=== PATIENT | female | born 1940 | race Caucasian/White ===

== ENCOUNTER 2016-08-28 09:16 | Inpatient (IN) | payer MEDICARE ==
[~2016-08-28] VITALS: Ht 162.6 cm; Wt 68.0 kg
[~2016-08-28 09:16] MED LIST: APIX5TAB PO; ASPI-973 PO; ATOR20TA65 PO; BIFI4CAP PO; CALC-78 PO; DILT120C83 PO; ESCI5TAB10 PO; FUR20 PO; LACT1CAP65 PO; LOSA100T29 PO; LUTE1CAP PO; METO25TA99 PO; MULT-1018 PO; RANI150T11 PO; UBID100C25 PO
--- NOTE | 2016-08-28 10:15 | NUR ---
MOc Admit Patient is a direct admit from home accompanied by her , ambulatory, A/O x3. PCP visit yesterday and was advised to seek admission today. Patient oriented to room and unit, will continue to monitor.
[2016-08-28] MEDS ORDERED: ATOR20TA PO (11:58)
[2016-08-28] MEDS ORDERED: ESCI5TAB PO (12:08)
[2016-08-28] MEDS ORDERED: AMLO5TAB2 PO (12:08)
[2016-08-28] MEDS ORDERED: METO-272 PO (12:08)
[2016-08-28] MEDS ORDERED: DABI150C PO (12:08)
[2016-08-28] MEDS ORDERED: ZYL100 PO (12:08)
[2016-08-28 13:15] VITALS: BP 143/74; PULSE 56; RESP 16; O2SAT 96
[2016-08-28] MEDS ORDERED: 0.9% Sodium Chloride 500 ML IV STA (15:50)
[2016-08-28] MEDS ORDERED: Ondansetron 2 mg/mL 2 mL Inj IVPUSH PRN (15:50)
[2016-08-28] MEDS ORDERED: Alum-Mag Hydrox-Simeth 30 mL Suspension PO PRN (15:50)
[2016-08-28] MEDS ORDERED: Polyethylene Glycol (PEG) 17 Gm Powder PO PRN (15:50)
--- NOTE | 2016-08-28 16:46 | HP ---
[address] [address] HISTORY AND PHYSICAL PATIENT: NELIA DOBBS : 1940 MR#: [id number] ADMIT: 08/28/2016 JOB ID: [id number] PRIMARY CARE PROVIDER: Dr. Lopez Bone, [facility], Jeb Liu. The patient is admitted from the ED, inpatient status, [place] [facility]. CHIEF COMPLAINT: Abdominal pain. HISTORY OF PRESENT ILLNESS: This is a very pleasant 75-year-old female with three episodes of acute abdominal pain. Yesterday she woke up in the morning, had a cup of coffee and shortly thereafter developed pretty intense mid epigastric abdominal pain, nausea and vomiting. This lasted for several hours. She touched base with her physician who did lab work which showed an elevated lipase reported today and also an ultrasound reported today that showed gall stones. No pericystic fluid. Negative Jordan sign. Non dilated ducts and questionable acute cholecystitis. About 3:30 the pain resolved. The patient had two raspberries later in the evening. Again had about another 15 minutes of pain, but since then the pain is pretty much gone at this time. However, she is not eating anything. The patient had two other episodes, one last Friday and one about two weeks prior, very similar to the above but it was not as severe and only lasted about half an hour. She has not had this before and does not know she has gallstones. She has never had pancreatitis. She drinks no alcohol. There has been no diarrhea, no cough, productive sputum, chest pain, headaches. COMPLETE REVIEW OF SYSTEMS: Obtained, all pertinent positives as in HPI above, the rest of review of systems are negative. PAST MEDICAL HISTORY: 1. Paroxysmal atrial fibrillation. 2. Hypertension. 3. Hyperlipidemia. 4. Mild coronary artery disease. 5. Insomnia. 6. Chronic diastolic heart failure. 7. Chronic kidney disease stage 3. 8. Diverticulosis. 9. Gout. MEDICINES: 1. Pradaxa 150 b.i.d. 2. Amlodipine 5 b.i.d. 3. Lipitor 20 daily. 4. Losartan 200 daily. 5. Metoprolol 50 b.i.d., succinate. 6. Aspirin 81 daily. 7. Lasix 20 daily. 8. Escitalopram 2.5 daily. 9. Lexapro 2.5 daily. 10. Calcium. 11. Allopurinol 100 daily. ALLERGIES: CODEINE causes nausea. No other allergies. SOCIAL HISTORY: The patient lives with her . She has never smoked and she consumes no alcohol. FAMILY HISTORY: Mother had significant coronary artery disease as well as her sister. PHYSICAL EXAMINATION: No fever, heart rate 56, respiratory rate 16, blood pressure 143/74, O2 sats 96% on room air. The patient is alert, not in acute distress. is present. Skin is warm and dry. Eyes: PERRLA. EOMs intact. Mouth shows adequate hydration. No lesions. Cardiac is regular. No murmur. Lungs clear to auscultation. Abdomen has a little bit of epigastric to right upper quadrant discomfort to deep palpation. Mild. The rest of her abdominal examination is benign, soft, nonacute. Extremities showed no significant edema. Cranial nerves 2-12 are intact. No gross motor or sensory defects noted. ANALYSIS AND PLAN: 1. Acute pancreatitis present on admission, active. Our triage physician told me that the patient's lipase was over 3000. She has obvious gallstones without dilated ducts. At this time we are going to put her on limited intake with some clear liquids only. We are going to give her 500 cc NS bolus and then maintain an IV at 150 cc an hour for good hydration. I have set patient up for a MRCP. Will repeat lab today and get followup lab in the morning. Will provide a little bit of Dilaudid for pain if she needs it. 2. Coronary artery disease. Her coronary artery disease mild, present on admission, stable. Will get a baseline EKG. Will continue with patient's aspirin, metoprolol and amlodipine but we will be holding her ARB, Lipitor and Lasix for now. 3. Paroxysmal atrial fibrillation present on admission, stable. Will monitor the patient on telemetry. We are going to hold patient's Pradaxa at this point in time as the patient could deteriorate and require some sort of surgical intervention. Will place her on subcutaneous heparin prophylactically for DVT. Will restart her Pradaxa as soon as possible. Will be continued with her metoprolol. 4. Depression. Present on admission, stable. Will continue with patient's Lexapro and escitalopram. 5. Gout. Present on admission, stable. Will continue with patient's allopurinol 100 mg daily. CODE STATUS: FULL CODE. The patient is admitted under inpatient status with expected length of stay greater than two mid nights due to severity of presenting symptoms, risk of adverse events and complexity of treatment plan.
--- NOTE | 2016-08-28 16:50 | DRSVH ---
PROCEDURE: MR ABDOMEN MRCP INDICATIONS: Gallstones and pancreatitis, abdominal pain TECHNIQUE: Coronal HASTE through the abdomen, axial 2-D FLASH in- and [id number], and breath-hold T2 FSE with fat saturation through the biliary system and pancreas. Oblique coronal and axial thin-slice HASTE, radial thick-slab HASTE centered on the extrahepatic bile ducts. Intravenous secretin: Not requested. COMPARISON: [facility], US, US ABDOMEN, 08/27/2016, 17:10. FINDINGS: Image quality: Limited by patient motion artifact. Pancreas and biliary system: Intra- and extra-hepatic biliary ducts are non dilated. Pancreas is no rmal in morphology, without adjacent soft tissue edema. Pancreatic duct is normal in caliber, withou t developmental anomalies. Multiple gallstones noted in the dependent portion of the gallbladder nec k. Filling defect is noted in the distal common bile duct near the level of the ampulla suspicious fo r choledocholithiasis. Gallbladder wall is thickened and there is pericholecystic fluid. Other solid organs: Liver and spleen are normal in size. No adrenal nodules. Both kidneys are norm al in size, without hydronephrosis. Nodes and vessels: No retroperitoneal or mesenteric adenopathy by size criteria. Aorta and inferior vena cava are normal in size. Bowel and peritoneum: Unenhanced bowel loops are normal in caliber. No free fluid. Lung bases: No basal pleural effusions. Heart size is normal. Bones and soft tissues: No ventral hernias. Bone marrow is of normal overall signal. IMPRESSION: 1. Cholelithiasis with gallbladder wall thickening and a small amount of pericholecystic fluid concer yash for acute cholecystitis. 2. Small filling defect in the distal common bile duct near the ampulla suspicious for choledocholith iasis. 3. Image quality limited by motion artifact. Dictated by: Xiomara Raymond MD, PhD on 08/28/2016 at 16:44 Approved by: Xiomara Raymond MD, PhD on 08/28/2016 at 16:49
[2016-08-28 17:03] LABS: APPEARANCE,URINE CLEAR (CLEAR,HAZY); COLOR,URINE YELLOW (YELLOW); OCCULT BLOOD,URINE NEGATIVE (NEGATIVE); UROBILINOGEN,URINE NORMAL (NORMAL)
[2016-08-28 17:29] LABS: BASOPHILS % (AUTO) 0.3 % (0-3); EOSINOPHILS % (AUTO) 3.7 % (0-5); MONOCYTES % (AUTO) 11.5 % (4-12); Mean Corpuscular Hemoglobin 33.2 pg (27.0-35.0); NEUTROPHILS % (AUTO) 64.7 % (40-74); Platelet Count 192 bil/L (150-400)
[2016-08-28 18:05] VITALS: BP 149/66; PULSE 60; O2SAT 97
[2016-08-28] MEDS: 0.9% Sodium Chloride 1,000 ML IV SCH (18:09)
[2016-08-28] MEDS: Heparin 5,000 Unit/mL Inj SUBQ SCH (18:09)
[2016-08-28 18:10] VITALS: PULSE 58
--- NOTE | 2016-08-28 19:27 | NUR ---
INSOMNIA At shift change, pt reported having insomnia when she's in the hospital. Pt said she normally takes zolpidem at home PRN and melatonin every night for a year, but that melatonin has not been working for her. Paged Dr. Robles "Pt requesting ambien, says she normally takes at home. Also reports melatonin, but does not work for her." Awaiting reply. Addendum: 08/28/16 at 1939 by DENZEL COLLADO RN Ambien ordered for tonight. Melatonin and ambien added to medication reconciliation. Discussed with pt needed to speak with day hospitalist about adding these medications.
[2016-08-28] MEDS ORDERED: ZOLP5TAB6 PO (19:37)
[2016-08-28] MEDS ORDERED: MELA1TAB10 PO (19:38)
[2016-08-28] MEDS: MeTOProlol XL 50 mg ER24 Tablet PO SCH (19:52)
[2016-08-28 19:54] VITALS: BP 146/63; PULSE 58; RESP 17; O2SAT 95
[2016-08-29] VITALS (16 sets, daily range): BP systolic 113–166; BP diastolic 49–88; PULSE 55–80; RESP 15–22; O2SAT 93–100
[2016-08-29] MEDS: Heparin 5,000 Unit/mL Inj SUBQ SCH (00:51)
[2016-08-29] MEDS: 0.9% Sodium Chloride 1,000 ML IV SCH ×2 (00:51→11:37)
[2016-08-29 06:45] LABS: BASOPHILS % (AUTO) 0.4 % (0-3); EOSINOPHILS % (AUTO) 3.1 % (0-5); Mean Corpuscular Hemoglobin 33.7 pg (27.0-35.0); Mean Corpuscular Volume 99.2 fL (81-100); NEUTROPHILS % (AUTO) 69.9 % (40-74); Platelet Count 180 bil/L (150-400)
--- NOTE | 2016-08-29 07:48 | PCM.PNMED ---
Subjective Date of Service Aug 29, 2016 Subjective Resting comfortable in bed. Only on clears, no further nausea. No fever. Exam Vital Signs Vital Sign - Last Date Time Temp Pulse Resp B/P Pulse Ox O2 Delivery O2 Flow Rate FiO2 08/29/16 07:28 37.0 62 16 152/70 94 Room Air Intake and Output 08/28/16 08/28/16 08/29/16 Cumulative From/Thru 15:00 23:00 07:00 08/28/16 12:31 - 08/29/16 06:15 Intake Total 1400 ml 1488 ml 2888 ml Output Total 500 ml 1850 ml 2350 ml Balance 900 ml -362 ml 538 ml Intake Oral 900 ml 240 ml 1140 ml IV Total 500 ml 1248 ml 1748 ml Output Urine Total 500 ml 1850 ml 2350 ml Exam Skin warm and dry CV; regular with out murmur Resp; Clear to auscultation GI, soft non acute, minimal tenderness Neuro; intact, no focal deficits HENT, adequate hydration, no active lesions Lab and Diagnostics Result Diagram: 08/29/1660408/29/16 06 Assessment & Plan 1. Acute pancreatitis present on admission, improving -Lipase >3,000 out patient, now 100 -secondary to gall stones -hydration and pain management -Dilaudid IV prn sig pain 2. Gallstones, poa, active and symptomatic -see ultrasound and MRCP -discussed with Dr Rodriguez, he will see patient and consider cholecystectomy -make patient NPO 2. Coronary artery disease, poa, stable -mild disease -Will get a baseline EKG. -Will continue with patient's aspirin, metoprolol and amlodipine but we will be holding her ARB, Lipitor and Lasix for now. 3. Paroxysmal atrial fibrillation present on admission, stable. -Will monitor the patient on telemetry. -We are going to hold patient's Pradaxa at this point in time -Will be continued with her metoprolol. 4. Depression. Present on admission, stable. -continue with patient's Lexapro and escitalopram. 5. Gout. Present on admission, stable. -Will continue with patient's allopurinol 100 mg daily. Cori Thomas MD Aug 29, 2016 07:48
[2016-08-29] MEDS ORDERED: Cefotetan Inj 2,000 MG in IV Premix 1 EACH IV ONE (08:15)
[2016-08-29] MEDS: MeTOProlol XL 50 mg ER24 Tablet PO SCH ×2 (08:19→20:18)
[2016-08-29] MEDS ORDERED: ESCITALOPRAM OXALATE 2.5 MG PO SCH (08:30)
[2016-08-29] MEDS ORDERED: Ondansetron 2 mg/mL 2 mL Inj ONE (10:14)
[2016-08-29] MEDS ORDERED: Rocuronium 10 mg/mL 5 mL Inj ONE (10:14)
[2016-08-29] MEDS ORDERED: Dexamethasone 4 mg/mL Inj ONE (10:14)
[2016-08-29] MEDS ORDERED: Propofol 10,000 mCg/mL 20 mL Inj ONE (10:14)
[2016-08-29] MEDS ORDERED: fentaNYL-PF 50 mCg/mL 2 mL Inj ONE (10:14)
[2016-08-29] MEDS ORDERED: Ketamine 10 mg/mL 20 mL Inj ONE (10:14)
--- NOTE | 2016-08-29 11:51 | NUR ---
Social Work: Initial Assessment D: EMR reviewed. Pt is a 75 y/o female admitted on 08/28/16 for pancreatitis per H&P. SANYA met with pt and spouse at bedside to conduct initial assessment. Pt was alert and oriented x3. SW explained role and wrote phone number on white board in room. SW confirmed pt has completed DPOA/advanced directive ppw and encourage pt to bring a copy to the hospital. Pt's DPOA/primary contact is her spouse, Timothy Carlisle ([phone]), and can be contacted for discharge planning. Pt's insurance is [employer] and PCP is Lopez Bone MD. Pt has no SNF or HH hx. Pt does not have LTC insurance or VA benefits. Pt does not own or use any DME. Pt is independent with ADLs. Pt drives. Pt is independent at baseline. Pt lives in a multi-story home (0 steps to enter, 13 steps to the second level) with her spouse in [place]. Pt's spouse confirmed he will provide pt transport home via POV when pt is medically stable. SW does not anticipate any discharge needs at this time but will continue to follow if needs arise. A: Pt who is independent at baseline P: Pt's spouse confirmed he will provide pt transport home via POV when pt is medically stable. SANYA does not anticipate any discharge needs at this time but will continue to follow if needs arise. [facility] Addendum: 08/29/16 at 1156 by HAFSA STANTON SS Amended: Links added.
--- NOTE | 2016-08-29 13:02 | NUR ---
TO OR IV saline locked. Consent form has been signed. Report given to SISSY Martinez. Transported to the OR via a gurney. is aware.
--- NOTE | 2016-08-29 13:10 | PCM.HPANE ---
Patient Data Surgeon Admitting Provider:Nikolay Chacon MD Attending Provider:Nikolay Chacon MD Primary Care Physician:Lopez Bone MD Other Provider: Reason for Visit Pancreatitis Ht/WT & BMI Height (Feet): 5 Height (Inches): 4.00 Weight (Kilograms): 68.000 Body Mass Index 25.63 Allergies Coded Allergies: codeine (Verified Adverse Reaction, Intermediate, Nausea, 08/28/16) Uncoded Allergies: UNKNOWN ANTIBIOTIC (Allergy, Unknown, 10/17/15) severe colitis Past Anesthesia History Anesthesia History: Denies:: Abnormal Airway, Anesthesia Reactions, Difficult Intubation, Fam Anesthesia Reaction, Fam Malignant Hypertherm, Malignant Hyperthermia Diabetes History Hx Diabetes?: No MRSA MRSA: No Medications Blood Thinner: Aspirin Hypertension Medication: Yes Home Meds Incl Beta Chris: Yes Date Beta Chris Taken: Aug 29, 2016 Reported Medications Melatonin (Melatonin 1 mg Tablet)1 Each Tablet1 Mg PO HS PRN For Insomnia #0.5 TABLET Ref 0 08/28/16 Zolpidem 5 Mg Tablet5 Mg PO HS PRN For Insomnia Ref 0 08/28/16 Escitalopram Oxalate (Lexapro)5 Mg Tablet2.5 Mg PO DAILY 30 Days Ref 0 08/28/16 Amlodipine 5 Mg Tablet5 Mg PO BID Ref 0 08/28/16 Metoprolol Succinate ER 50 Mg Tab.er.24h50 Mg PO BID Ref 0 08/28/16 Dabigatran Etexilate Mesylate (Pradaxa)150 Mg Mewuvsw963 Mg PO BID 30 Days 08/28/16 Allopurinol 100 Mg Azvecu402 Mg PO DAILY Ref 0 08/28/16 Atorvastatin (Lipitor)20 Mg Vfuhvo40 Mg PO DAILY Ref 0 08/28/16 Multivitamin (Multi Vitamin Daily)1 Each Tablet1 Tab PO DAILY 02/20/16 Ubidecarenone (Co Q-10)100 Mg Dubcqba304 Mg PO DAILY 02/20/16 Lutein Extract/Zeaxanthin Ext (Lutein 15 mg Softgel)1 Each Capsule1 Capsule PO DAILY 02/20/16 Escitalopram Oxalate 5 Mg Tablet2.5 Mg PO MORNING 02/20/16 Furosemide 20 Mg Tab20 Mg PO Q3Day 11/04/15 Lactobacillus Acidophilus (Probiotic)1 Each Capsule1 Each PO Q3days 10/17/15 Calcium Carbonate/Vitamin D3 (Calcium 500 + Vit D Caplet)1 Each Tablet1 Tab PO evening 10/17/15 Losartan Potassium 100 Mg Iymjsu430 Mg PO DAILY 07/21/15 Aspirin 81 Mg Olwpjh25 Mg PO Evening 07/21/15 Discontinued Reported Medications Ranitidine (Zantac)150 Mg Aopdbu054 Mg PO DAILY PRN Heartburn 02/20/16 Bifidobacterium Infantis (Align)4 Mg Capsule4 Mg PO DAILY 02/20/16 Discontinued Scripts Apixaban (Eliquis)5 Mg Tablet5 Mg PO BID #60 TABLET Ref 0 Prov:Luc Clayton MD 02/20/16 Metoprolol Succinate ER 25 Mg Tab.er.24h25 Mg PO BID #60 TABLET Prov:Luc Clayton MD 02/20/16 Diltiazem ER (Cardizem CD)120 Mg Cap.er.54j755 Mg PO DAILY #30 TABLET Prov:Luc Clayton MD 02/20/16 Atorvastatin Calcium 20 Mg Xwvxvr30 Mg PO HS #30 TABLET Prov:Dimitri Calix MD 10/20/15 History History of ENT Problems?: Yes HEENT History: Positive for:: Cataracts (surgery 2-3yrs ago) Sinus Problem (Seasonal Allergies) Denies:: Abnormal Airway Difficult Intubation Dysphagia Glaucoma Hearing Problem Denture Type: None Full- Upper Full- Lower Teeth Condition: No Teeth Hx of Heart Problems?: Yes Cardiovascular History: Positive for:: Congestive Heart Failure (Possible, linseed oil press tender questions diagnosis) Edema (Ankles) Hypertension Irregular Heartbeat (AFIB) Denies:: AICD Atrial Fibrillation Cardiac Surgery Chest Pain Heart Murmur Pacemaker Thrombophlebitis Valvular Heart Disease Hx of Respiratory Problem?: No Respiratory History: Positive for:: Pneumonia (30yrs ago) Denies:: Asthma COPD Chest Surgery Cough Dyspnea Emphysema Hemoptysis Tuberculosis Hx Neurologic Problems?: No Neurological History: Denies:: Alzheimer's Disease CVA Dementia Dizziness Headaches Parkinson's Disease Seizures Hx of GI Problems?: Yes Hx of Problems?: No Genitourinary History: Denies:: HX of Hemodialysis Kidney Stones Urinary Tract Infection HX of Peritoneal Dialysis: No Female Hx: Denies:: Currently Endometriosis Pelvic Inflammatory Problems with Breasts? Hx Musculoskeletal Problems?: Yes Musculoskeletal History: Positive for:: Back Injury (Nerve block in 2005) Denies:: Joint Replacement Musculoskeletal Trauma Hx of Psycho/Social Problems?: No Psycho Social History: Denies:: Anxiety Bipolar Disorder Hx Depression Suicide Attempt Hx Surgeries?: No Hx Any Other Health Problems?: No Other History: Denies:: Cancer Hospitalization (Multiple times last year for A-fib and CHF ) Thyroid Disease History Blood Transfusions: Positive for:: Accept Blood Products? Denies:: Blood Transfuse Reaction Blood Transfusions Hx Diabetes: No Hx Alcohol Use: NoHx Substance Use: No Smoking Status: Never Smoker Have You Smoked inLast 12 mo: No Stop/Bang Treated for Sleep Apnea?: No Do You Have a CPAP Machine?: No S-Snoring: Do You Snore Loudly: No T-Tired: feel tired, fatigued: No O-Obsered: Observed not breath: No P-Blood Pressure: treated: Yes B- Body Mass Index > 35 kg/m2: No A- Age over 50: Yes N- Neck Large Circumference: No G- Gender Male: No AURA Total Score: 1 AURA Risk Assessment: Low Risk, <3 Yes Risk Assessment Category Category 1A: Patient has history of documented sleep apnea, and HAS NOT received any narcotic, sedative or anesthesia administration during this stay. Category 1B: Patient has history of documented sleep apnea, and HAS received any narcotic , sedative or anesthesia administration during this stay Category 2: Patient has SUSPECTED Obstructive Sleep Apnea, and HAS received any narcotic , sedative or anesthesia administration during this stay. Category 3: Patient has SUSPECTED Obstructive Sleep Apnea and HAS NOT received narcotic, sedative or anesthesia administration during this stay. Category 4: Outpatient in Procedural Areas with known sleep apnea or who screen positive for High Risk via the STOP/BANG questionnaire. Exam Exam Vital Signs Vital Signs Date Time Temp Pulse Resp B/P Pulse Ox O2 Delivery O2 Flow Rate FiO2 08/29/16 11:36 36.7 57 20 127/63 93 Room Air 08/29/16 07:55 67 08/29/16 07:28 37.0 62 16 152/70 94 Room Air 08/29/16 06:15 37.2 65 18 145/65 94 Room Air General Appearance: Alert, Oriented X3, Cooperative, No Acute Distress HEENT/AIRWAY: MP 2 Lungs: Clear to Auscultation, Normal Air Movement Heart: Exam Unremarkable, Regular Rate/Rhythm, No Murmurs/Rubs/Gallops Meds/Labs/Diagnostics Admission Meds Current Medications Heparin Sodium (Porcine) 5000 unit 5,000 unit Q8 SUBQ Last administered on 00:51; Start 08/28/16 at 16:30; Stop 08/29/16 at 08:01; Status DC Sodium Chloride (Normal Saline) 1,000 ml @ 100 mls/hr Q10H IV Last administered on 08/29/16 11:37; Start 08/28/16 at 15:47 Amlodipine Besylate (Norvasc) 5 mg BID PO Last administered on 08/29/16 08:19; Start 08/28/16 at 20:30 Metoprolol Succinate (Toprol XL) 50 mg BID PO Last administered on 08/29/16 08: 19; Start 08/28/16 at 20:30 Labs Test 08/28/16 16:00 08/28/16 17:18 08/29/16 06:05 Urine Color Yellow (YELLOW) Urine Appearance Clear (CLEAR,HAZY) Urine pH 5.0 (5.0-8.0) Urine Specific [place] 1.005 (1.003-1.035) Urine Protein Tracemg/dL (NEG,TRACE) Urine Glucose (UA) Negativemg/dL (NEGATIVE) Urine Ketones Negativemg/dL (NEGATIVE) Urine Occult Blood Negative (NEGATIVE) Urine Nitrite Negative (NEGATIVE) Urine Bilirubin Negative (NEGATIVE) Urine Urobilinogen Normalmg/dL (NORMAL) Urine Leukocyte Esterase Trace (NEGATIVE) Urine RBC 0-2/hpf (0-2) Urine WBC 0-5/hpf (0-5) Urine Epithelial Cells None/hpf (NONE-MOD) Urine Crystals None seen (NONE SEEN) Urine Bacteria Few/hpf (NONE-FEW) Urine Hyaline Casts None/lpf (NONE) Urine Granular Casts None seen (NONE SEEN) Urine Waxy Casts None seen (NONE SEEN) Urine Red Blood Cell Casts None seen (NONE SEEN) Urine White Blood Cell Casts None seen (NONE SEEN) Urine Mucus None seen (None Seen) Urine Trichomonas None seen (NONE SEEN) Urine Yeast None (NONE SEEN) Urinalysis Comment None Urine Culture Reflexed Indicated Triglycerides Level 75mg/dL (0-149) Cholesterol Level 165mg/dL (100-199) LDL Cholesterol, Calculated 68.000mg/dL (0-99) VLDL Cholesterol 15.000mg/dL HDL Cholesterol 82mg/dL (>39) Cholesterol/HDL Ratio 2.01 (0.0-4.4) Thyroid Stimulating Hormone (TSH) 1.850uIU/mL (0.450-4.500) White Blood Count 4.6th/mm3 (3.8-10.1) Red Blood Count 3.74mil/mm3 (3.90-5.20) Hemoglobin 12.6g/dL (12.0-15.6) Hematocrit 37.1% (35.0-46.0) Mean Corpuscular Volume 99.2fL (81-100) Mean Corpuscular Hemoglobin 33.7pg (27.0-35.0) Mean Corpuscular Hemoglobin Concent 34.0% (32.0-37.0) Red Cell Distribution Width 12.8% (12.3-15.4) Platelet Count 180bil/L (150-400) Neutrophils (%) (Auto) 69.9% (40-74) Lymphocytes (%) (Auto) 16.6% (14-46) Monocytes (%) (Auto) 10.0% (4-12) Eosinophils (%) (Auto) 3.1% (0-5) Basophils (%) (Auto) 0.4% (0-3) Sodium Level 139mEq/L (134-144) Potassium Level 4.1mEq/L (3.5-5.2) Chloride Level 102mEq/L (97-108) Carbon Dioxide Level 25mmol/L (18-29) Blood Urea Nitrogen 15mg/dL (8-27) Creatinine 0.85mg/dL (0.57-1.00) Estimat Glomerular Filtration Rate 93mL/min (>59) Glucose Level 101mg/dL (60-99) Calcium Level 9.3mg/dL (8.5-10.1) Total Bilirubin 0.4mg/dL (0.0-1.2) Aspartate Amino Transf (AST/SGOT) 72U/L (0-50) Alanine Aminotransferase (ALT/SGPT) 103U/L (0-32) Alkaline Phosphatase 147U/L (25-165) C-Reactive Protein 2.0mg/dL (0.0-0.5) Total Protein 6.1g/dL (6.4-8.4) Albumin 3.9g/dL (3.4-5.0) Lipase 100U/L (13-60) Plan Impression Patient chart reviewed, patient interviewed and anesthestic plan with risks, benefits, and alternatives discussed, and informed consent obtained. ASA Physical Status: ASA2 Mod Systemic Disease Anesthetic Plan: GA Bene/Risks/Altern/Consents: Yes HP Complete Prior to Induction: Yes Piyush Brantley MD Aug 29, 2016 13:10
[2016-08-29] MEDS ORDERED: Lactated Ringer's 500 ML IV PRN (13:11)
[2016-08-29] MEDS ORDERED: Lactated Ringer's 1,000 ML IV SCH (13:11)
[2016-08-29] MEDS ORDERED: EPHEDrine Sulfate 50 mg/mL Inj IVPUSH PRN (13:15)
[2016-08-29] MEDS ORDERED: Dexamethasone 4 mg/mL Inj IVPUSH PRN (13:15)
[2016-08-29] MEDS ORDERED: Ondansetron 2 mg/mL 2 mL Inj IVPUSH PRN (13:15)
[2016-08-29] MEDS ORDERED: Phenylephrine 10,000 mCg/mL Inj IVPUSH PRN (13:15)
[2016-08-29] MEDS ORDERED: fentaNYL-PF 50 mCg/mL 2 mL Inj IVPUSH PRN (13:15)
[2016-08-29] MEDS ORDERED: Lactated Ringer's 1,000 ML IV ONE (13:16)
[2016-08-29] MEDS ORDERED: Bupivacaine-MPF 0.5% 30 mL Inj INFILTRATE ONE (13:38)
[2016-08-29] MEDS: HYDROmorphone 0.5 mg/0.5 mL iSecure Syringe IVPUSH PRN ×3 (15:24→20:18)
--- NOTE | 2016-08-29 15:39 | NUR ---
POST-OP Patient received from PACU via a hospital bed. IVF ongoing at this time. Patient rated her pain as 5-6/10 over her abdomen and throat. Denies nausea/SOB. Oriented to room and call light.
--- NOTE | 2016-08-29 16:14 | PCM.ANEP1 ---
Post Anesthesia PACU Phase 1 Assessment Vital Signs Vital Signs Date Time Temp Pulse Resp B/P Pulse Ox O2 Delivery O2 Flow Rate FiO2 08/29/16 15:26 36.4 57 16 113/49 93 Room Air 08/29/16 15:00 55 16 149/50 97 Room Air 08/29/16 14:50 36.5 58 17 147/51 99 Room Air 08/29/16 14:45 60 17 152/88 99 Room Air 08/29/16 14:40 63 18 117/57 100 Simple Mask 8 08/29/16 14:35 72 16 134/58 100 Simple Mask 8 08/29/16 14:30 76 22 145/55 100 Simple Mask 8 08/29/16 14:27 36.9 80 22 166/65 100 Simple Mask 8 08/29/16 11:36 36.7 57 20 127/63 93 Room Air Anesthetic Administered: GA Level of Alertness: Awake, talking MAI's with Equal Strength: Yes Pain: Yes Pain Scale Score: 7 Nausea or Vomiting: No CV Function & Hydration Stable: Yes Airway Device: none Lungs: Clear to Auscultation, Normal Air Movement Dermatome Level: Full Sensation PACU Phase 2 Assessment Complications: No Follow up Care: No Patient Instructions Provided: N/A Piyush Brantley MD Aug 29, 2016 16:14
--- NOTE | 2016-08-29 16:43 | DRSVH ---
PROCEDURE: X-RAY OPERATIVE CHOLANGIOGRAM ([id number]) INDICATIONS: CHOLIANGIOGRAM COMPARISON: [facility], MR, MR ABD MRCP, 08/28/2016, 16:11. FINDINGS: Biliary ducts: The surgeon injected contrast into the biliary ducts after cannulation of the cystic duct stump. Visualized intra- and extrahepatic bile ducts are normal in caliber, without strictures. No intraluminal filling defects to suggest retained ductal stones or sludge. No evidence for iatro genic ductal injury. Duodenum: Contrast flows promptly through the sphincter of Oddi into the duodenum, which appears nor mal in caliber. IMPRESSION: Normal operative cholangiogram. Dictated by: Morgan Parson RRA Interpreted: Xiomara Raymond MD on 08/29/2016 at 14:33 Approved by: Xiomara Raymond MD, PhD on 08/29/2016 at 16:41
--- NOTE | 2016-08-29 16:58 | CONS ---
[address] [address] CONSULTATION REPORT PATIENT: NELIA DOBBS : 1940 MR#: [id number] ADMIT: 08/28/2016 JOB ID: [id number] DATE OF SERVICE: 08/29/2016 CHIEF COMPLAINT/IDENTIFICATION: Dr. Thomas has asked me to see this 75-year-old woman with symptomatic gallstones. HISTORY OF PRESENT ILLNESS: The patient was admitted yesterday with abdominal pain and a reported lipase as an outpatient of 3000. She had gallstones identified on ultrasound. Currently, she is pain-free. She relates a history in her 20s of having an acholic stool, being told that she had some sort of gallbladder mass, but never having her gallbladder out and never following up. In the past several months, she has had some episodes of classic biliary colic with mid epigastric postprandial pain lasting anywhere from 1-4 hours with spontaneous resolution. Her last one did not resolve spontaneously for quite some time which is why she went to see her primary care provider who had her admitted to the Medicine Service. She reports no history of acholic stools nor tea-colored urine. She did have an MRCP that suggests a nonobstructing common duct calculi. PAST MEDICAL HISTORY: AFib, hypertension, hyperlipidemia, suspected coronary artery disease with a recent coronary arteriogram, diverticulosis, gout. MEDICATIONS: Extensive medication list includin. Pradaxa. 2. Amlodipine. 3. Lipitor. 4. Losartan. 5. Metoprolol. 6. Aspirin. 7. Lasix. 8. Citalopram. 9. Calcium. 10. Lexapro p.r.n. ALLERGIES: CODEINE leads to nausea. SOCIAL HISTORY: The patient lives with her , negative tobacco, negative daily alcohol. FAMILY HISTORY: Coronary artery disease. REVIEW OF SYSTEMS: Negative per admission history and physical. PHYSICAL EXAMINATION: Slender woman in no acute distress. Her sclerae are clear. Neck is supple. Breasts are not examined. Lungs are clear. Heart sounds are irregularly irregular. Her abdomen is soft, nontender though there is some fullness in the epigastrium. Extremities are without edema. LABORATORY DATA: White count is 4.6, hematocrit is 37. Chemistries are normal. Liver function tests show mild elevation of the AST and ALT that are resolving, normal bilirubin and alkaline phosphatase. Her C. reactive protein is high at 2, lipase was 157 in the hospital yesterday afternoon, 100 repeat this morning though she reportedly has one of 3000 as an outpatient. IMAGING: MRCP and ultrasound from the previous 24 hours have been reviewed and these demonstrate gallstones, possible cholecystitis, possible nonobstructing choledocholithiasis. IMPRESSION/PLAN: 1. Cholecystitis. 2. Symptomatic gallstones. 3. Possible choledocholithiasis. 4. Gallstone pancreatitis. I have recommended that we proceed with a laparoscopic cholecystectomy after a full discussion of risks, benefits, possible complications, the options and she agrees to proceed. We will do so later today and update the cholangiogram.
--- NOTE | 2016-08-29 23:26 | OP ---
[address] [address] OPERATIVE REPORT PATIENT: NELIA DOBBS : 1940 MR#: [id number] ADMIT: 08/28/2016 JOB ID: [id number] DATE OF SURGERY: 08/29/2016 PREOPERATIVE DIAGNOSIS(ES): Symptomatic gallstones. POSTOPERATIVE DIAGNOSIS(ES): Symptomatic gallstones. PROCEDURE: Laparoscopic cholecystectomy with cholangiogram. SURGEON: Dr. Rome Tovar. END MATCHER: Hiram Grady PA-C. INDICATIONS: A 75-year-old woman with gallstone pancreatitis, symptomatic gallstones. She presents for cholecystectomy. Notably, her MRCP demonstrated possible nonobstructing calculi in the distal common duct. FINDINGS: 1. A assistant quality manager was required for camera operation, retraction. 2. The patient had evidence of mild acute cholecystitis, some chronic adhesions consistent with previous attacks of biliary tract inflammation. 3. Cholangiogram was more or less normal though the proximal ducts were mildly dilated. There was good flow into the duodenum, except the nonobstructing calculi in the distal common duct suggested by MRCP though cholangiogram is likely much less sensitive than that study. PROCEDURE IN DETAIL: The patient brought to the operating room and general anesthesia was administered. SCOAP protocol was followed. Surgical time-out was performed. The abdomen was prepped and draped in sterile fashion. We obtained access with a Veress needle. Prior to the initial incision, she did receive IV Ancef. Abdomen was insufflated. We placed a total of four ports. The abdomen was surveyed. There were adhesions of the greater omentum up to the gallbladder and liver, no free fluid. General abdominal survey was unremarkable. Adhesions were taken down from the greater omentum to the gallbladder and the gallbladder was retracted cephalad. There were some filmy adhesions to the duodenum that were taken down. We identified the triangle of Calot, dissected out where the cystic duct entered the gallbladder, developed the triangle of Calot and then placed a single clip on the gallbladder side, and obtained our cholangiogram through the common duct which was relatively scarred. This cholangiogram showed good flow into the common duct, mild dilation to roughly 1 cm of the proximal common duct and some intrahepatic dilation but had good flow down into the distal common duct with tapering to the ampulla and good flow into the duodenum without sign of obstruction. I cannot appreciate a nonobstructing stone, though could easily miss one on the cholangiogram if it was in smooth contour with the cholangiogram . Satisfied with our cholangiogram, we removed the catheter and placed two clips on the patient's side of the cystic duct, taking care not to impinge on what appeared to be a fairly short cystic duct. We now dissected the gallbladder out of liver bed without spillage of stones. We did spill a little bit of bile, but suctioned this all up, removed the gallbladder in a bag to protect the wound, and then suctioned up all of her bile and irrigated out the wound. No stones were spilled. We checked our clips. Hemostasis was good. We suctioned out all of our irrigation, let our CO2 out through the ports and we then removed our ports. The subxiphoid port was closed with a 3-0 Vicryl followed by subcuticular Monocryl at all four incisions. Patient tolerated the procedure well and, at the time of this dictation, is awakening from anesthesia.
[2016-08-30] VITALS (8 sets, daily range): BP systolic 138–155; BP diastolic 53–70; PULSE 49–63; RESP 14–17; O2SAT 93–96
[2016-08-30] MEDS: HYDROmorphone 0.5 mg/0.5 mL iSecure Syringe IVPUSH PRN ×2 (00:45→04:41)
--- NOTE | 2016-08-30 06:06 | NUR ---
Shift Note Assumed pt care at 0230, pt able to ambulate around unit halls, lap sites dry and intact, pt adequately taking po fluids, call light in reach all times.
[2016-08-30 06:53] LABS: BASOPHILS % (AUTO) 0 % (0-3); EOSINOPHILS % (AUTO) 0 % (0-5); MONOCYTES % (AUTO) 3.8 % (4-12); Mean Corpuscular Hemoglobin 32.8 pg (27.0-35.0); Mean Corpuscular Volume 96.8 fL (81-100); NEUTROPHILS % (AUTO) 88.5 % (40-74); Platelet Count 171 bil/L (150-400)
[2016-08-30] MEDS ORDERED: Benzocaine-Menthol Lozenge 2/Pkg PO PRN (08:05)
[2016-08-30] MEDS: MeTOProlol XL 50 mg ER24 Tablet PO SCH (08:07)
--- NOTE | 2016-08-30 08:14 | PCM.PNSURG ---
Subjective Date of Service: Aug 30, 2016 Date of Service: Aug 30, 2016 Visit Information: Reason for Visit Pancreatitis Surgery/Surgery Date Aug 29, 2016 Post-Op Day # 1 Date of Admission: Aug 28, 2016 at 09:50 Hospital Day # 3 Subjective: Patient reports doing well this morning. She is having pain in her throat and right shoulder. She is ambulating in the hallway this morning. She was concerned about not making any urine overnight, bladder scans showed no retention. This morning she was able to void almost 400 mL. She typically takes Lasix every third day, yesterday was one of the days that she would normally take it. She is having no nausea or vomiting, she has a mild nonproductive cough. Postop General: No Shortness of Breath, No Chest Pain Gastrointestinal: Tolerating Oral Feedings, No N/V, Passing Flatus Pain Management: PO Postop Activity: Ambulating Independently Objective Vital Sign- Last 8 Hours Date Time Temp Pulse Resp B/P Pulse Ox O2 Delivery O2 Flow Rate FiO2 08/30/16 05:19 51 08/30/16 04:06 36.9 61 17 155/64 93 Room Air 08/30/16 00:42 37.1 63 16 138/70 93 Room Air Intake and Output- Last 8 Hour 08/30/16 Cumulative From/Thru 07:00 08/28/16 12:31 - 08/30/16 05:02 Intake Total 800 ml 5330 ml Output Total 550 ml 3550 ml Balance 250 ml 1780 ml Intake Oral 800 ml 1990 ml IV Total 3340 ml Output Urine Total 550 ml 3550 ml # Voids 2 General: Alert, Oriented X3, Cooperative, No Acute Distress Neck: Supple Lungs: Normal Air Movement, Wheezes (mild, bilaterally) Heart: Regular Rate/Rhythm, No Murmurs/Rubs/Gallops Abdomen: Benign, Soft, Appropriately tender Extremities: Distal Pulses Palpable, Warm, Other (scd's in place) Neuro: Grossly Neurologically Intact Catheters: None Result Diagram: 08/30/16 0645 08/30/16 0645 Assessment & Plan Impression Patient is a 75-year-old female status post cholecystectomy with cholangiogram postop day 1. She is doing well postoperatively with only complains of right shoulder and throat pain. On physical exam she has mild wheezing bilaterally which she attributes to her allergies. She is not experiencing shortness of breath and has not no productive cough. Problems: Plan 1. Cepacol drops ordered for throat pain 2. Incentive spirometer ordered to reduce postoperative risk of pneumonia 3. Patient is surgically stable and okay to discharge home today if medicine service agrees. 4. Follow-up in surgery clinic with Hiram Grady or other PA in 4 weeks. Pain Management: By mouth Tylenol, IV Dilaudid which can be transitioned to by mouth when appropriate. VTE Prophylaxis: SCDs Resuscitation Status: CPR: Attempt Resuscitation Attending Statement: I agree with Dr. Garcia's assessment and plan. copies to: Rome Tovar MD; Ken Peguero MD, Erika R DO Aug 30, 2016 08:14 Ken Peguero MD Sep 06, 2016 13:44
--- NOTE | 2016-08-30 10:48 | NUR ---
Social Work: Readiness for Discharge D: EMR reviewed. Pt is on day 2 of hospitalization. Per RN, pt is ambulating independently in room, eating, and is feeling good. Pt's labs returned okay. SANYA spoke with MD and states that pt is ready to discharge today. SANYA does not anticipate any needs at this time but will continue to follow if needs arise. A: Pt who is independent at baseline. P: Pt to discharge home with spouse via POV. SANYA does not anticipate any needs at this time but will continue to follow if needs arise. [facility]
--- NOTE | 2016-08-30 10:54 | NUR ---
Status Surgery assessed pt this am. Pain well controlled this am, passing flatus, VSS with BB held for HR 49. Hospitalist also notified at rounds that beta enid held this am. Pt ate breakfast w/o n/v. Ambulating halls w/o issues, incisions healing.
--- NOTE | 2016-08-30 13:40 | NUR ---
Status MD notified that pt does wheeze/ get SOB with ambulation. Had episode of patient reported reflux for which pt stated maalox was effective. VSS, remains bradycardic, aware. MD to order lasix. Will continue to monitor.
[2016-08-30] MEDS ORDERED: Furosemide 10 mg/mL 2 mL Inj IVPUSH STA (13:57)
[2016-08-30] MEDS ORDERED: Pantoprazole 4 mg/mL 10 mL Inj IVPUSH ONE (16:50)
--- NOTE | 2016-08-30 16:54 | PCM.PNMED ---
Subjective Date of Service Aug 30, 2016 Subjective Surgery went well, no problems. Today patient was a little sob and wheezy when walking. Also had some heart burn relieved with mylanta. Missed dose of lasix yesterday so we gave one dose IV, 20 mg. Exam Vital Signs Vital Sign - Last Date Time Temp Pulse Resp B/P Pulse Ox O2 Delivery O2 Flow Rate FiO2 08/30/16 12:30 36.5 55 14 140/53 95 Room Air 08/29/16 14:40 8 Intake and Output 08/29/16 08/29/16 08/30/16 Cumulative From/Thru 15:00 23:00 07:00 08/28/16 12:31 - 08/30/16 05:02 Intake Total 650 ml 992 ml 800 ml 5330 ml Output Total 650 ml 550 ml 3550 ml Balance 650 ml 342 ml 250 ml 1780 ml Intake Oral 50 ml 800 ml 1990 ml IV Total 650 ml 942 ml 3340 ml Output Urine Total 650 ml 550 ml 3550 ml # Voids 2 2 Exam Skin warm and dry HENT, adequate hydration, no active lesions CV; regular with out murmur, no JVD, no murmur Resp; Clear to auscultation GI, soft non acute, some expected postoperative tenderness, Neuro; intact, no focal deficits Lab and Diagnostics Result Diagram: 08/30/1664408/30/1645 Assessment & Plan 1. Acute pancreatitis present on admission, improving -Lipase >3,000 out patient, now 100 -secondary to gall stones -hydration and pain management -Dilaudid IV prn sig pain 2. Gallstones, poa, active and symptomatic -see ultrasound and MRCP -lap-rodrigo 08-29-16 -advance diet -patient still with pain today, little sob with ambulation today, bit unsteady; will watch patient overnight and check cardiac status -add Vicodin prn 2. Coronary artery disease, poa, stable -mild disease -Will get a baseline EKG. -Will continue with patient's aspirin, metoprolol and amlodipine but we will be holding her ARB, -Lipitor and Lasix for now. -will get 2 troponins, tonight and tomorrow, and 2 ekg's 3. Paroxysmal atrial fibrillation present on admission, stable. -Will monitor the patient on telemetry. -We are going to hold patient's Pradaxa at this point in time -Will be continued with her metoprolol. 4. Depression. Present on admission, stable. -continue with patient's Lexapro and escitalopram. 5. Gout. Present on admission, stable. -Will continue with patient's allopurinol 100 mg daily. 6. GERD, active -one dose protonix -mylanta prn VTE Prophylaxis: SCDs VTE Mechanical Devices: Intermittant Pneumatic CD Resuscitation Status: CPR: Attempt Resuscitation Cori Thomas MD Aug 30, 2016 16:54
[2016-08-30] MEDS ORDERED: Alum-Mag Hydrox-Simeth 30 mL Suspension PO PRN (17:00)
[2016-08-30] MEDS: HYDROcodone-APAP 5-325 mg Tablet PO PRN (17:08)
--- NOTE | 2016-08-30 18:18 | NUR ---
Pain MD notified/aware that pt c/o some abdominal pain unrelieved by tylenol and return of pt stated "reflux". VSS. MD to order labs and EKG. Pt denies SOB at rest. Will continue to monitor. Pt abdominal pain relieved to 3/10 with ordered vicodin. Pt in bed and ordering dinner.
[2016-08-30] MEDS: MeTOProlol XL 25 mg ER24 Tablet PO SCH (20:45)
[2016-08-31 00:09] VITALS: BP 133/65; PULSE 55; RESP 18; O2SAT 93
[2016-08-31] MEDS: HYDROmorphone 0.5 mg/0.5 mL iSecure Syringe IVPUSH PRN (00:17)
[2016-08-31 04:41] VITALS: BP 133/61; PULSE 54; RESP 16; O2SAT 93
--- NOTE | 2016-08-31 05:11 | NUR ---
Pain/Mobility Pt. pain managed well by prn dilaudid, ambulated independently in the hallway x3 this shift, denies chest pain, N/V, on continues tele monitoring SB 53 with occasionally PAC per teletypesetter monitor, hourly rounds, call light in reach at all times, will continue to monitor.
[2016-08-31 05:26] VITALS: PULSE 54
[2016-08-31 07:10] LABS: BASOPHILS % (AUTO) 0 % (0-3); EOSINOPHILS % (AUTO) 0.5 % (0-5); Mean Corpuscular Hemoglobin 32.9 pg (27.0-35.0); Mean Corpuscular Volume 97.5 fL (81-100); NEUTROPHILS % (AUTO) 78.8 % (40-74); Platelet Count 177 bil/L (150-400)
[2016-08-31 07:37] VITALS: BP 151/58; PULSE 54; RESP 14; O2SAT 94
[2016-08-31 08:06] LABS: TROPONIN T 0.01 ug/L (0.0-0.011)
[2016-08-31] MEDS: MeTOProlol XL 25 mg ER24 Tablet PO SCH (08:25)
[2016-08-31] MEDS: HYDROcodone-APAP 5-325 mg Tablet PO PRN (09:01)
--- NOTE | 2016-08-31 09:07 | NUR ---
Tele MD notified this am that 0830 beta enid held for HR 54. Pt denies chest pain, SOB at rest, or dizziness.
--- NOTE | 2016-08-31 09:13 | PCM.DIMED ---
Discharge Instructions Date of Service Aug 31, 2016 Dates of Hospitalization Aug 28, 2016 at 09:50 Discharge Diagnosis Discharge Diagnosis 1. Acute pancreatitis present on admission, improving 2. cholecystectomy for gall stones 2. Coronary artery disease, poa, stable 3. Paroxysmal atrial fibrillation present on admission, stable. 4. Depression. Present on admission, stable. 5. Gout. Present on admission, stable. 6. GERD, improving Diet Discharge Diet: Other (advance diet slowlly) Activity Discharge Activity: Limited until seen by PCP Call your provider Call your provider for: Fever or Chills, Vomitting, Excessive diarrhea Patient Instructions Follow-up plan Follow up with your primary care provider in a week or two Your nurse will explaining the post surgical recommendation for activity and possible surgical follow up. Follow-up with PCP in: 1 week Cori Thomas MD Aug 31, 2016 09:13
[2016-08-31] MEDS ORDERED: HYDR-3090 PO (09:17)
[2016-08-31] MEDS ORDERED: METO25TA3 PO (09:17)
--- NOTE | 2016-08-31 09:27 | PCM.DC.MED ---
Discharge Summary Date of Service Aug 31, 2016 Dates of Hospitalization Date of Hospital Admission Aug 28, 2016 at 09:50 Date of Discharge: Aug 31, 2016 Providers: Admitting Physician: Nikolay Chacon MD Primary Care Physician: Lopez Bone MD Attending Physician: Nikolay Chacon MD Diagnosis at Time of Discharge Diagnosis at Time of Discharge 1. Acute pancreatitis present on admission, improving 2. cholecystectomy for gall stones 2. Coronary artery disease, poa, stable 3. Paroxysmal atrial fibrillation present on admission, stable. 4. Depression. Present on admission, stable. 5. Gout. Present on admission, stable. 6. GERD, improving Procedures XRay, CTs & MRIs PROCEDURE: MR ABDOMEN MRCP INDICATIONS: Gallstones and pancreatitis, abdominal pain Pancreas and biliary system: Intra- and extra-hepatic biliary ducts are non dilated. Pancreas is normal in morphology, without adjacent soft tissue edema. Pancreatic duct is normal in caliber, without developmental anomalies. Multiple gallstones noted in the dependent portion of the gallbladder neck. Filling defect is noted in the distal common bile duct near the level of the ampulla suspicious for choledocholithiasis. Gallbladder wall is thickened and there is pericholecystic fluid. Other solid organs: Liver and spleen are normal in size. No adrenal nodules. Both kidneys are normal in size, without hydronephrosis. Nodes and vessels: No retroperitoneal or mesenteric adenopathy by size criteria. Aorta and inferior vena cava are normal in size. Bowel and peritoneum: Unenhanced bowel loops are normal in caliber. No free fluid. Lung bases: No basal pleural effusions. Heart size is normal. Bones and soft tissues: No ventral hernias. Bone marrow is of normal overall signal. IMPRESSION: 1. Cholelithiasis with gallbladder wall thickening and a small amount of pericholecystic fluid concerning for acute cholecystitis. 2. Small filling defect in the distal common bile duct near the ampulla suspicious for choledocholithiasis. 3. Image quality limited by motion artifact. Dictated by: Xiomara Raymond MD, PhD on 08/28/2016 at 16:44 PROCEDURE: X-RAY OPERATIVE CHOLANGIOGRAM ([id number]) INDICATIONS: CHOLIANGIOGRAM COMPARISON: [facility], MR, MR ABD MRCP, 08/28/2016, 16:11. FINDINGS: Biliary ducts: The surgeon injected contrast into the biliary ducts after cannulation of the cystic duct stump. Visualized intra- and extrahepatic bile ducts are normal in caliber, without strictures. No intraluminal filling defects to suggest retained ductal stones or sludge. No evidence for iatrogenic ductal injury. Duodenum: Contrast flows promptly through the sphincter of Oddi into the duodenum, which appears normal in caliber. IMPRESSION: Normal operative cholangiogram. Dictated by: Morgan MENA Interpreted: Xiomara Raymond MD on 08/29/2016 at 14:33 Invasive Procedures DATE OF SURGERY: 08/29/2016 PREOPERATIVE DIAGNOSIS(ES): Symptomatic gallstones. POSTOPERATIVE DIAGNOSIS(ES): Symptomatic gallstones. PROCEDURE: Laparoscopic cholecystectomy with cholangiogram. SURGEON: Dr. Rome Tovar. AMMONIA DISTILLER: Hiram Grady PA-C. INDICATIONS: A 75-year-old woman with gallstone pancreatitis, symptomatic gallstones. She presents for cholecystectomy. Notably, her MRCP demonstrated possible nonobstructing calculi in the distal common duct. FINDINGS: 1. A surgical specialist was required for camera operation, retraction. 2. The patient had evidence of mild acute cholecystitis, some chronic adhesions consistent with previous attacks of biliary tract inflammation. 3. Cholangiogram was more or less normal though the proximal ducts were mildly dilated. There was good flow into the duodenum, except the nonobstructing calculi in the distal common duct suggested by MRCP though cholangiogram is likely much less sensitive than that study. PROCEDURE IN DETAIL: The patient brought to the operating room and general anesthesia was administered. SCOAP protocol was followed. Surgical time-out was performed. The abdomen was prepped and draped in sterile fashion. We obtained access with a Veress needle. Prior to the initial incision, she did receive IV Ancef. Abdomen was insufflated. We placed a total of four ports. The abdomen was surveyed. There were adhesions of the greater omentum up to the gallbladder and liver, no free fluid. General abdominal survey was unremarkable. Adhesions were taken down from the greater omentum to the gallbladder and the gallbladder was retracted cephalad. There were some filmy adhesions to the duodenum that were taken down. We identified the triangle of Calot, dissected out where the cystic duct entered the gallbladder, developed the triangle of Calot and then placed a single clip on the gallbladder side, and obtained our cholangiogram through the common duct which was relatively scarred. This cholangiogram showed good flow into the common duct, mild dilation to roughly 1 cm of the proximal common duct and some intrahepatic dilation but had good flow down into the distal common duct with tapering to the ampulla and good flow into the duodenum without sign of obstruction. I cannot appreciate a nonobstructing stone, though could easily miss one on the cholangiogram if it was in smooth contour with the cholangiogram . Satisfied with our cholangiogram, we removed the catheter and placed two clips on the patient's side of the cystic duct, taking care not to impinge on what appeared to be a fairly short cystic duct. We now dissected the gallbladder out of liver bed without spillage of stones. We did spill a little bit of bile, but suctioned this all up, removed the gallbladder in a bag to protect the wound, and then suctioned up all of her bile and irrigated out the wound. No stones were spilled. We checked our clips. Hemostasis was good. We suctioned out all of our irrigation, let our CO2 out through the ports and we then removed our ports. The subxiphoid port was closed with a 3-0 Vicryl followed by subcuticular Monocryl at all four incisions. Patient tolerated the procedure well and, at the time of this dictation, is awakening from anesthesia. Rome Tovar MD 08/29/16 1420 Brief History HISTORY OF PRESENT ILLNESS: This is a very pleasant 75-year-old female with three episodes of acute abdominal pain. Yesterday she woke up in the morning, had a cup of coffee and shortly thereafter developed pretty intense mid epigastric abdominal pain, nausea and vomiting. This lasted for several hours. She touched base with her physician who did lab work which showed an elevated lipase reported today and also an ultrasound reported today that showed gall stones. No pericystic fluid. Negative Jordan sign. Non dilated ducts and questionable acute cholecystitis. About 3:30 the pain resolved. The patient had two raspberries later in the evening. Again had about another 15 minutes of pain, but since then the pain is pretty much gone at this time. However, she is not eating anything. The patient had two other episodes, one last Friday and one about two weeks prior, very similar to the above but it was not as severe and only lasted about half an hour. She has not had this before and does not know she has gallstones. She has never had pancreatitis. She drinks no alcohol. There has been no diarrhea, no cough, productive sputum, chest pain, headaches. COMPLETE REVIEW OF SYSTEMS: Obtained, all pertinent positives as in HPI above, the rest of review of systems are negative. Hospital Course 1. Acute pancreatitis present on admission, resolved -Lipase >3,000 out patient, now 100 -secondary to gall stones 2. Gallstones, poa, active and symptomatic -see ultrasound and MRCP -lap-rodrigo 08-29-16 -Discharge; doing well discharge patient home, resume all meds 2. Coronary artery disease, poa, stable -mild disease -Will get a baseline EKG. -continue with all previous medication except the metoprolol which I have reduced fro 50 bid to 25 bid due to bradycardia we noted in hospital 3. Paroxysmal atrial fibrillation present on admission, stable. -Will monitor the patient on telemetry. -We are going to hold patient's Pradaxa at this point in time -reducemetoprolol XL from 50 bid to 25 bid 4. Depression. Present on admission, stable. -continue with patient's Lexapro and escitalopram. 5. Gout. Present on admission, stable. -Will continue with patient's allopurinol 100 mg daily. 6. GERD, active -zantac prn Exam Vital Signs (Last) Date Time Temp Pulse Resp B/P Pulse Ox O2 Delivery O2 Flow Rate FiO2 08/31/16 07:37 36.7 54 14 151/58 94 Room Air 08/29/16 14:40 8 Test 08/28/16 16:00 08/28/16 17:18 08/29/16 06:05 08/30/16 06:45 Urine Color Yellow (YELLOW) Urine Appearance Clear (CLEAR,HAZY) Urine pH 5.0 (5.0-8.0) Urine Specific [place] 1.005 (1.003-1.035) Urine Protein Tracemg/dL (NEG,TRACE) Urine Glucose (UA) Negativemg/dL (NEGATIVE) Urine Ketones Negativemg/dL (NEGATIVE) Urine Occult Blood Negative (NEGATIVE) Urine Nitrite Negative (NEGATIVE) Urine Bilirubin Negative (NEGATIVE) Urine Urobilinogen Normalmg/dL (NORMAL) Urine Leukocyte Esterase Trace (NEGATIVE) Urine RBC 0-2/hpf (0-2) Urine WBC 0-5/hpf (0-5) Urine Epithelial Cells None/hpf (NONE-MOD) Urine Crystals None seen (NONE SEEN) Urine Bacteria Few/hpf (NONE-FEW) Urine Hyaline Casts None/lpf (NONE) Urine Granular Casts None seen (NONE SEEN) Urine Waxy Casts None seen (NONE SEEN) Urine Red Blood Cell Casts None seen (NONE SEEN) Urine White Blood Cell Casts None seen (NONE SEEN) Urine Mucus None seen (None Seen) Urine Trichomonas None seen (NONE SEEN) Urine Yeast None (NONE SEEN) Urinalysis Comment None Urine Culture Reflexed Indicated Triglycerides Level 75mg/dL (0-149) Cholesterol Level 165mg/dL (100-199) LDL Cholesterol, Calculated 68.000mg/dL (0-99) VLDL Cholesterol 15.000mg/dL HDL Cholesterol 82mg/dL (>39) Cholesterol/HDL Ratio 2.01 (0.0-4.4) Thyroid Stimulating Hormone (TSH) 1.850uIU/mL (0.450-4.500) Total Bilirubin 0.4mg/dL (0.0-1.2) Aspartate Amino Transf (AST/SGOT) 72U/L (0-50) Alanine Aminotransferase (ALT/SGPT) 103U/L (0-32) Alkaline Phosphatase 147U/L (25-165) Total Protein 6.1g/dL (6.4-8.4) Albumin 3.9g/dL (3.4-5.0) C-Reactive Protein 4.3mg/dL (0.0-0.5) Lipase 41U/L (13-60) Test 08/31/16 06:50 White Blood Count 10.8th/mm3 (3.8-10.1) Red Blood Count 3.53mil/mm3 (3.90-5.20) Hemoglobin 11.6g/dL (12.0-15.6) Hematocrit 34.4% (35.0-46.0) Mean Corpuscular Volume 97.5fL (81-100) Mean Corpuscular Hemoglobin 32.9pg (27.0-35.0) Mean Corpuscular Hemoglobin Concent 33.7% (32.0-37.0) Red Cell Distribution Width 12.8% (12.3-15.4) Platelet Count 177bil/L (150-400) Neutrophils (%) (Auto) 78.8% (40-74) Lymphocytes (%) (Auto) 10.4% (14-46) Monocytes (%) (Auto) 10.0% (4-12) Eosinophils (%) (Auto) 0.5% (0-5) Basophils (%) (Auto) 0% (0-3) Sodium Level 138mEq/L (134-144) Potassium Level 4.4mEq/L (3.5-5.2) Chloride Level 99mEq/L (97-108) Carbon Dioxide Level 24mmol/L (18-29) Blood Urea Nitrogen 29mg/dL (8-27) Creatinine 0.85mg/dL (0.57-1.00) Estimat Glomerular Filtration Rate 93mL/min (>59) Glucose Level 104mg/dL (60-99) Calcium Level 9.6mg/dL (8.5-10.1) Troponin T 0.010ug/L (0.0-0.011) Discharge Medications Discharge Medications Allopurinol (Allopurinol) 100 Mg Tablet 200 MG PO DAILY (Reported) Amlodipine (Amlodipine) 5 Mg Tablet 5 MG PO BID (Reported) Aspirin (Aspirin) 81 Mg Tablet 81 MG PO Evening (Reported) Atorvastatin (Lipitor) 20 Mg Tablet 20 MG PO DAILY (Reported) Calcium Carbonate/Vitamin D3 (Calcium 500 + Vit D Caplet) 1 Each Tablet 1 TAB PO evening (Reported) Dabigatran Etexilate Mesylate (Pradaxa) 150 Mg Capsule 150 MG PO BID (Reported) Escitalopram Oxalate (Escitalopram Oxalate) 5 Mg Tablet 2.5 MG PO MORNING ( Reported) Escitalopram Oxalate (Lexapro) 5 Mg Tablet 2.5 MG PO DAILY (Reported) Furosemide (Furosemide) 20 Mg Tab 20 MG PO Q3Day (Reported) Lactobacillus Acidophilus (Probiotic) 1 Each Capsule 1 EACH PO Q3days (Reported ) Losartan Potassium (Losartan Potassium) 100 Mg Tablet 200 MG PO DAILY (Reported ) Lutein Extract/Zeaxanthin Ext (Lutein 15 mg Softgel) 1 Each Capsule 1 CAPSULE PO DAILY (Reported) Metoprolol Succinate ER (Toprol XL) 25 Mg Tablet 25 MG PO BID Prescribed by: Cori TRUJILLO MD Multivitamin (Multi Vitamin Daily) 1 Each Tablet 1 TAB PO DAILY (Reported) Ubidecarenone (Co Q-10) 100 Mg Capsule 100 MG PO DAILY (Reported) As needed Hydrocodone-Acetaminophen 5-300 mg (Hydrocodone-Acetaminophen 5-300 mg) 1 Each Tablet 1 TABLET PO Q4H PRN PRN For Pain Prescribed by: Cori TRUJILLO MD Melatonin (Melatonin 1 mg Tablet) 1 Each Tablet 1 MG PO HS PRN PRN For Insomnia (Reported) Zolpidem (Zolpidem) 5 Mg Tablet 5 MG PO HS PRN PRN For Insomnia (Reported) Followup Plan Follow-up plan Follow up with your primary care provider in a week or two Your nurse will explaining the post surgical recommendation for activity and possible surgical follow up. Discharge Diet: Other (advance diet slowlly) Discharge Activity: Limited until seen by PCP Follow-up with PCP in: 1 week copies to: Lopez Bone MD, D Geoffrey MD Aug 31, 2016 09:27
--- NOTE | 2016-08-31 10:28 | NUR ---
Discharge Pt discharged in WC with at 1020. Pt ambulating w/ controlled pain and eating w/o n/v. All discharge instructions reviewed. Discussed wound care and signs/symptoms to report to PCP/surgery. Per hospitalist, pt to cut home dose of beta enid metoprolol in half, whether she takes 25mg or 50mg BID. If pt takes 50mg BID, pt to take 25mg BID. Pt verbalized understanding. Also states she has BP and HR monitor at home. Reviewed care notes for laprascopic cholecystectomy. Pt to follow up with surgery and PCP per instructions. No complaints or concerns on discharge.
--- NOTE | 2016-08-31 11:27 | NUR ---
Social Work- Discharge D: EMR reviewed. Pt is on day 3 of hospitalization. Per RN, pt is ambulating independently in room, eating, and is feeling good. MD was planning on discharging patient last night, reviewed her labs overnight and discharged patient today. Pt discharged home with spouse no needs. A: Pt who is independent at baseline. P: Pt to discharge home with spouse via POV. No needs identified. MERCY Guzman
--- NOTE | 2016-09-02 14:09 | PATH ---
SURGICAL PATHOLOGY Attending Physician:Rome Tovar MD CASE STATUS: Signed Out PATIENT NAME: NELIA DOBBS PID: [id number] : 1940 DATE COLLECTED:08/29/2016 00:00 SPECIMEN: Gallbladder CLINICAL HISTORY: CHOLECYSTITIS 1). GALLBLADDER FINAL DIAGNOSIS: 1.GALLBLADDER: CHOLELITHIASIS WITH ASSOCIATED CHRONIC CHOLECYSTITIS, FOCALLY ACTIVE. ICD10 K80.66 GROSS DESCRIPTION: The specimen is received in one formalin filled container labeled with the patient's name, sublabeled "gallbladder" and consists of an opened 6.0 x 2.5 x 2.5 CM gallbladder. The serosa is smooth. The wall is 0.2-0.7 CM in thickness. The mucosa is a dark green in color. The lumen contains a dark green mucoid material and approximately 10-15 black fragments of friable material or calculi. 6 claims representative sections are submitted in 2 cassettes. 08/30/2016 [facility] MICRO DESCRIPTION: See diagnosis. ICD-9 CODES: CPT CODES: 1: 45886 Electronically Signed Out Chun Pittman MD [facility] [address], [place] [address] Technical component performed at [facility], [address] [place] [address] Ave[address], [place], [address]
== END 2016-08-31 10:15 | disposition home or self-care (01) | DRG 419 ==
LOC: MOC 09:50
PROVIDERS: ADMIT Hospitalist; ATTEND Hospitalist
PROC: BF101ZZ Fluoroscopy of Bile Ducts using Low Osmolar Contrast (ICD-10-PCS; 2016-08-29)
PROC: 0FT44ZZ Resection of Gallbladder, Percutaneous Endoscopic Approach (ICD-10-PCS; principal; 2016-08-29 13:00)
DX: K85.10 Biliary acute pancreatitis without necrosis or infection (principal); I25.10 Atherosclerotic heart disease of native coronary artery without angina pectoris; I48.0 Paroxysmal atrial fibrillation; F32.9 Major depressive disorder, single episode, unspecified; M10.9 Gout, unspecified; K21.9 Gastro-esophageal reflux disease without esophagitis

== ENCOUNTER 2016-11-18 11:02 | Emergency (ER) | payer MEDICARE ==
[2016-11-18] VITALS (8 sets, daily range): BP systolic 111–142; BP diastolic 42–64; PULSE 58–109; RESP 14–19; O2SAT 96–100
[~2016-11-18 11:02] MED LIST changes: +AMLO5TAB2 PO; -APIX5TAB PO; +ATOR20TA PO; -ATOR20TA65 PO; -BIFI4CAP PO; +DABI150C PO; -DILT120C83 PO; +ESCI5TAB PO; +HYDR-3090 PO; +MELA1TAB10 PO; +METO25TA3 PO; -METO25TA99 PO; -RANI150T11 PO; +ZOLP5TAB6 PO; +ZYL100 PO
--- NOTE | 2016-11-18 11:17 | ED.REPORT ---
HPI-Chest Pain 40 and Over Date of Service Nov 18, 2016 ED Provider: Dr. Salazar The pt is a 75 y/o female with a hx of paroxysmal A-Fib w/ RvR (on Pradaxa), HTN , Hyperlipidemia, CAD, and CHF who presents to the ED complaining of palpitations with rapid heart rate, onset last night. Associated sx include fatigue, dyspnea with exertion, and transient lightheadedness upon arrival in the ED. She denies change in appetite, fever, chest pain, lower extremity edema , shortness of breath, chills, vomiting, diarrhea, abdominal pain, dysuria, and increased urination. Nursing Notes Stated Complaint: RAPID PULSE Nursing Notes Reviewed: Yes Allergies: Coded Allergies: codeine (Verified Adverse Reaction, Intermediate, Nausea, 11/18/16) Uncoded Allergies: UNKNOWN ANTIBIOTIC (Allergy, Unknown, 10/17/15) severe colitis Scheduled Allopurinol (Allopurinol) 100 Mg Tablet 200 MG PO DAILY Amlodipine (Amlodipine) 5 Mg Tablet 5 MG PO BID Aspirin (Aspirin) 81 Mg Tablet 81 MG PO Evening Atorvastatin (Lipitor) 20 Mg Tablet 20 MG PO DAILY Calcium Carbonate/Vitamin D3 (Calcium 500 + Vit D Caplet) 1 Each Tablet 1 TAB PO evening Dabigatran Etexilate Mesylate (Pradaxa) 150 Mg Capsule 150 MG PO BID Escitalopram Oxalate (Escitalopram Oxalate) 5 Mg Tablet 2.5 MG PO MORNING Escitalopram Oxalate (Lexapro) 5 Mg Tablet 2.5 MG PO DAILY Furosemide (Furosemide) 20 Mg Tab 20 MG PO Q3Day Lactobacillus Acidophilus (Probiotic) 1 Each Capsule 1 EACH PO Q3days Losartan Potassium (Losartan Potassium) 100 Mg Tablet 200 MG PO DAILY Lutein Extract/Zeaxanthin Ext (Lutein 15 mg Softgel) 1 Each Capsule 1 CAPSULE PO DAILY Metoprolol Succinate ER (Toprol XL) 25 Mg Tablet 25 MG PO BID Multivitamin (Multi Vitamin Daily) 1 Each Tablet 1 TAB PO DAILY Ubidecarenone (Co Q-10) 100 Mg Capsule 100 MG PO DAILY Scheduled PRN Hydrocodone-Acetaminophen 5-300 mg (Hydrocodone-Acetaminophen 5-300 mg) 1 Each Tablet 1 TABLET PO Q4H PRN PRN For Pain Melatonin (Melatonin 1 mg Tablet) 1 Each Tablet 1 MG PO HS PRN PRN For Insomnia Zolpidem (Zolpidem) 5 Mg Tablet 5 MG PO HS PRN PRN For Insomnia General Time Seen by MD: 11:17 Chief Complaint Other (palpitations with rapid heart rate) Hx Obtained From: Patient Arrived By: Walk-in Sudden in Onset?: Yes Onset Occurred: Yesterday Symptom Duration: Since onset Severity: Current: No pain currently Severity: Maximum: No pain Recent Healthcare: Recent doctor visit, Recent hospitalization Past Medical History Past Medical History Paroxysmal A-Fib w/ RvR HTN Hyperlipidemia CAD CHF Past Surgical History Denies Smoking History Never Smoker Social History Alcohol Use: Denies alcohol use Other Social History: Good social support, Ambulatory Status Independent Review of Systems Denies: change in appetite Constitutional: Reports: Fatigue, Denies: Chills, Fever Respiratory: Reports: Dyspnea on exertion Cardiovascular: Reports: Palpitations (with rapid heart rate), Denies: Chest pain, Edema GI: Denies: Abdominal pain, Diarrhea, Vomiting Neurologic: Reports: Lightheaded (transient) Complete sys rev & neg: except as marked. Female: Denies: Dysuria, Urinary frequency Physical Exam Initial Vital Signs Vital Signs (First) Date Time Temp Pulse Resp B/P Pulse Ox O2 Delivery O2 Flow Rate FiO2 11/18/16 11:20 36.7 106 18 142/59 97 Room Air Initial VS: Reviewed Head / Eyes: Atraumatic, Normocephalic Neck: Supple, Non-tender, Full range of motion Extremities: Vascular intact, Neuro intact, No swelling, No tenderness Skin: Warm, Dry, No cyanosis Neurologic: Alert, Oriented, Nonfocal General/Constitutional: Awake, Alert, No acute distress, Well appearing, Cooperative Respiratory / Chest: Atraumatic, Breath sounds NL, Breath sounds = bilat, No respiratory distress, No rales, No rhonchi, No wheezing Cardiovascular: Heart rate NL, No murmurs, No rubs Heart Rate / Rhythm: Positive: Irregular rhythm Abdomen: Atraumatic, Soft, Non-tender, No guarding, No rebound Interpretation & Diagnostics Lab Results Interpretation Result Diagram: 11/18/16 1140 11/18/16 1140 Test 11/18/16 11:40 White Blood Count 6.1th/mm3 (3.8-10.1) Red Blood Count 3.92mil/mm3 (3.90-5.20) Hemoglobin 13.1g/dL (12.0-15.6) Hematocrit 38.5% (35.0-46.0) Mean Corpuscular Volume 98.2fL (81-100) Mean Corpuscular Hemoglobin 33.4pg (27.0-35.0) Mean Corpuscular Hemoglobin Concent 34.0% (32.0-37.0) Red Cell Distribution Width 12.8% (12.3-15.4) Platelet Count 199bil/L (150-400) Neutrophils (%) (Auto) 69.0% (40-74) Lymphocytes (%) (Auto) 19.7% (14-46) Monocytes (%) (Auto) 7.7% (4-12) Eosinophils (%) (Auto) 3.1% (0-5) Basophils (%) (Auto) 0.3% (0-3) Sodium Level 138mEq/L (134-144) Potassium Level 4.7mEq/L (3.5-5.2) Chloride Level 99mEq/L (97-108) Carbon Dioxide Level 23mmol/L (18-29) Blood Urea Nitrogen 23mg/dL (8-27) Creatinine 0.93mg/dL (0.57-1.00) Estimat Glomerular Filtration Rate 84mL/min (>59) Glucose Level 125mg/dL (60-99) Calcium Level 9.8mg/dL (8.5-10.1) Magnesium Level 1.6mg/dL (1.6-2.6) Total Bilirubin 0.3mg/dL (0.0-1.2) Aspartate Amino Transf (AST/SGOT) 37U/L (0-50) Alanine Aminotransferase (ALT/SGPT) 29U/L (0-32) Alkaline Phosphatase 106U/L (25-165) Troponin T 0.010ug/L (0.0-0.011) Total Protein 7.0g/dL (6.4-8.4) Albumin 4.2g/dL (3.4-5.0) Hold Becerra Top Tube Received (Received) ECG Interpretation ECG Interpretation: A-fib. Rate 100. Time: 11:52 Interpreted by: ED physician ECG Interpretation: ECG post cardioversion: Normal sinus rhythm. Rate 54. Early transition abnormal R-wave progression Time: 14:19 Interpreted by: ED physician X-Ray Chest Interpretation Chest Xray Interpretation: IMPRESSION: Stable chest. Cardiomegaly without overt heart failure. No pneumonia. Dictated by: Aniket Ruiz M.D. on 11/18/2016 at 11:22 Approved by: Aniket Ruiz M.D. on 11/18/2016 at 11:23 View: Portable, 1 view Interpretation / Wet Read by: Interpret - Radiologist Procedures Electrical Cardioversion Electrical Cardioversion: 1 shock (100 joules) synchronized cardioversion. Time: 14:14 Procedure Performed by: ED physician Indication: Atrial fibrillation Consent / Setup / Site Prep: Informed consent provided, Time-out performed, Placed on oxygen, Placed on pulse oximeter, Place on p d driver, Hand hygiene observed, Stand sterile technique Procedural Sedation/Analgesia: Sedation: Propofol Joules: 100 Procedure Successful: Yes Post-Procedure Rhythm: Normal sinus rhythm Post-Procedure / Complications: No complications, Condition improved, Tolerated procedure well, Patient stable Proced Mod Sedation/Analgesia Time: 14:14 Procedure Performed by: ED physician Sedation Time: Enter # minutes (5 minutes) Consent / Setup: Consent from patient, Time-out performed, Hand hygiene observed, Stand sterile technique, Position supine, Head of bed at 30-60 deg Indication: Other (cardioversion) Preparation: biotechnician applied, Pulse oximeter applied, Constant attendance, IV access established, Eval last meal time, Supplemental oxygen, Procedure explained, Suction available, End tidal CO2 mon applied VS Prior to Procedure: O2 saturation normal, Blood pressure normal, Respiratory rate normal Mallampati: Class & Anatomy: 1 tonsils/uvula/s palate Airway Exam: Normal facial anatomy, Normal neck anatomy, Normal anatomy CVS/Resp Exam: Normal breath sounds Neuro Exam: Alert Sedation: Sedation: Propofol (40) ASA Classification: 2 mild systemic disease Response During Procedure: Handled secretions adeq, Maintained airway well, Oxygenation stable, Sedation appropriate, Vital signs stable Complications During/After: None Reversal: None required Mental Status After Procedure: Alert, Oriented X3, Response to verbal stim, Response to painful stim, Normal per age, At patient's baseline Post-Procedure: Alert prior to discharge, Ambulatory with assist, Pt rtn pre- proc baseline, Vital signs normal Re-Eval/Medical Decision Med Decision/Clinical Course Patient presents with atrial fibrillation and rapid ventricular response. There was no response to 2 doses of IV metoprolol. Ultimately the decision is made to perform synchronized cardioversion. She responded appropriately. Recovered to normal baseline functioning. Stable for discharge. Return and follow-up precautions given Source of Hx: Old records Time of Eval: 13:18 Re-Evaluation/Progress Note: Rechecked pt. Discussed the plan to cardiovert as per Dr. Valenzuela's recommendation. She understands and agrees with the plan. All questions answered. Time of Eval: 14:22 Patient Status: Condition improved Re-Evaluation/Progress Note: Rechecked pt. Discussed lab results, imaging results, diagnosis and plan to discharge. Pt understands and agrees with the plan. F/U instruction and RTER warning given. All questions addressed Consultation : Referral / Consult Name: Carlos Alberto Valenzuela MD Consulted With: Cardiology Call Returned at: 13:11 Note: Recommends synchronized cardioversion. Counseled Regarding: Diagnosis, Lab results, Need for follow-up, When/why to return to ED Discharge & Departure Primary Impression: Atrial fibrillation with rapid ventricular response Disposition: Home Discharge Condition All VS Reviewed: Yes Condition: Stable Patient Instructions: A-fib (Atrial Fibrillation) (ED), Cardioversion (ED) Additional Instructions: While in the ER you were in atrial fibrillation and were shocked into a normal heart rhythm. Follow-up with your lime trimmer, call first thing in the morning to discuss medication management. Return to the ER if you develop persistent palpitations lasting more than 15 minutes or any other concerns Referrals: Mike Garcia MD Attestation Portions of this note were transcribed by Ge Florian. I,, personally performed the history,physical exam and medical decision-making;I reviewed and confirmed the accuracy of the information in the transcribed note. Signed by Ernst Reyna. 11/18/16 copies to: Mike Garcia MD, Timothy Luna TADEO Nov 18, 2016 11:17 Ge Florian Nov 18, 2016 11:22
[2016-11-18 11:58] LABS: BASOPHILS % (AUTO) 0.3 % (0-3); EOSINOPHILS % (AUTO) 3.1 % (0-5); MONOCYTES % (AUTO) 7.7 % (4-12); Mean Corpuscular Hemoglobin 33.4 pg (27.0-35.0); Mean Corpuscular Volume 98.2 fL (81-100); Platelet Count 199 bil/L (150-400)
[2016-11-18] MEDS ORDERED: MeTOProlol 1 mg/mL 5 mL Inj IVPUSH ONE (12:00)
--- NOTE | 2016-11-18 12:24 | DRSVH ---
PROCEDURE: X-RAY CHEST ONE VIEW, PORTABLE ([id number]) INDICATIONS: DYSRYTHMIA TECHNIQUE: One view of the chest was acquired. COMPARISON: [facility], CR, XR CHEST 1VW (PORTABLE), 02/19/2016, 1:43. FINDINGS: Surgical changes and devices: None. Lungs and pleura: No pleural effusions or pneumothorax. Lungs are clear. Mediastinum: Mediastinal contours appear normal. The heart is borderline enlarged. The pulmonary v asculature appears to be within normal limits. There is aortic atherosclerosis. Bones and chest wall: No suspicious bony lesions. Overlying soft tissues appear unremarkable. IMPRESSION: Stable chest. Cardiomegaly without overt heart failure. No pneumonia. Dictated by: Aniket Ruiz M.D. on 11/18/2016 at 11:22 Approved by: Aniket Ruiz M.D. on 11/18/2016 at 11:23
[2016-11-18] MEDS ORDERED: MeTOProlol 1 mg/mL 5 mL Inj IVPUSH SCH (12:35)
[2016-11-18 12:38] LABS: TROPONIN T 0.01 ug/L (0.0-0.011)
[2016-11-18 12:49] LABS: Magnesium 1.6 mg/dL (1.6-2.6)
[2016-11-18] MEDS ORDERED: Propofol 10 mg/mL 20 mL Inj IVPUSH ONE (14:00)
== END 2016-11-18 15:36 | disposition home or self-care (01) ==
LOC: SED 11:02
DX: I48.91 Unspecified atrial fibrillation (principal); I11.0 Hypertensive heart disease with heart failure; E78.5 Hyperlipidemia, unspecified; I50.9 Heart failure, unspecified; I25.10 Atherosclerotic heart disease of native coronary artery without angina pectoris; Z79.82 Long term (current) use of aspirin; Z88.5 Allergy status to narcotic agent
CPT/HCPCS: 36415; 71010; 80053; 83735; 84484; 85025; 92960; 93005; 94799; 96374; 96376; 99285; J2704